=== PATIENT | female | born 1990 | race Caucasian/White ===

== ENCOUNTER 2016-10-02 09:16 | Emergency (ER) | payer OTHER ==
[~2016-10-02] VITALS: Wt 57.0 kg
--- NOTE | 2016-10-02 10:30 | ERD ---
ER Documentation Chief Complaint Date/Time DATE: 10/02/16 TIME: 10:28 Chief Complaint FEVER, BODYACHES, THROAT PAIN, ONSET 2 DAYS HPI 26 yo female comes in with fever, sore throat, cough body aches, nausea vomiting x 3 days. She states she is starting to feel better and would like a work note to return. She reports her symptoms followed after her roommate. No recent travel. ROS All systems reviewed and are negative except as per history of present illness. Medications Home Meds Active Scripts Ondansetron (Ondansetron Odt) 4 Mg Tab.rapdis, 4 MG PO Q6H Y for NAUSEA AND/OR VOMITING, #10 TAB Prov:ISAAK PUGA PA-C 10/02/16 PMhx/Soc History of Surgery: No Anesthesia Reaction: No Hx Neurological Disorder: No Hx Respiratory Disorders: No Hx Cardiac Disorders: No Hx Psychiatric Problems: No Hx Miscellaneous Medical Probl: No Hx Alcohol Use: No Hx Substance Use: No Hx Tobacco Use: No Smoking Status: Never smoker Physical Exam Vitals Vital Signs Date Time Temp Pulse Resp B/P Pulse Ox O2 Delivery O2 Flow Rate FiO2 10/02/16 09:34 99.9 62 17 129/86 97 Physical Exam Const: Well-developed, well-nourished, in no acute distress. HEENT: Atraumatic. Normal Conjunctiva. TM's normal bilaterally, clear oropharynx. Supple. Full range of motion. No meningismus. Resp: Clear to auscultation bilaterally Cardio: Regular rate and rhythm, no murmurs Abd: Soft, non tender, non distended. Normal bowel sounds. No McBurney' s point tenderness. No guarding or rigidity. No peritoneal signs. Skin: No petechia or rashes Back: No midline or flank tenderness Ext: No cyanosis, or edema Neur: Awake and alert, appropriate for age Results 24 hrs Laboratory Tests Test 10/02/16 09:40 Bedside Urine Blood Negative Bedside Urine Glucose (UA) Negative Bedside Urine Ketones (LAB) Negative Bedside Urine Leukocyte Esterase (L Negative Bedside Urine Nitrite (LAB) Negative Bedside Urine Protein (LAB) Negative Bedside Urine pH (LAB) 6.0 Procedures/MDM The patient is a26 yo female who comes in with a viral syndrome. The patient has a differential diagnosis of a viral upper respiratory infection, bacterial upper respiratory infection, bronchitis, pneumonia, pharyngitis, laryngitis, epiglottitis, croup, pneumonia. Patient has a normal pulmonary examination, clear breath sounds, normal pulse oximetry, with no corrective measures needed at this time. Fluids, rest, antipyretics were encouraged. Departure Diagnosis: Primary Impression: Influenza-like symptoms Condition: ISAAK Walker PA-C Oct 02, 2016 10:30
[2016-10-02] MEDS ORDERED: ONDA4TAB14 PO (10:32)
[2016-10-02 10:37] LABS: URINE BLOOD (Dip) POC Negative (NEGATIVE)
== END 2016-10-02 11:11 | disposition home or self-care (01) ==
LOC: FTE 09:16
DX: R50.9 Fever, unspecified (principal); J02.9 Acute pharyngitis, unspecified; R05 Cough; R11.2 Nausea with vomiting, unspecified
CPT/HCPCS: 81003; Z7502; 99283